=== PATIENT | male | born 1985 | race Hispanic/Latino ===

== ENCOUNTER 2024-06-05 16:58 | Emergency (ER) | payer OTHER ==
[~2024-06-05] VITALS: Ht 177.8 cm; Wt 117.0 kg
[2024-06-05] MEDS: BACITRACIN ZINC 0.9GM TP ONE (17:43)
[2024-06-05] MEDS: LIDOCAINE HCL 2% LOCAL 20 ML VIAL INJ STA (17:43)
[2024-06-05 18:08] VITALS: PULSE 90; RESP 18; TEMP 98.4; O2SAT 97
== END 2024-06-05 18:08 | disposition home or self-care (01) ==
LOC: FSED 17:01
DX: S61.210A Laceration without foreign body of right index finger without damage to nail, initial encounter (principal); G89.11 Acute pain due to trauma; W45.8XXA Other foreign body or object entering through skin, initial encounter
CPT/HCPCS: 12001; 96372; 99283; J2001

== ENCOUNTER 2024-06-19 10:12 | Emergency (ER) | payer OTHER ==
[~2024-06-19] VITALS: Ht 177.8 cm; Wt 118.5 kg
[2024-06-19 10:27] VITALS: PULSE 82; RESP 18; TEMP 98.3; O2SAT 97
== END 2024-06-19 10:37 | disposition home or self-care (01) ==
LOC: FSED 10:19
DX: Z48.02 Encounter for removal of sutures (principal)
CPT/HCPCS: 99282; S0630